=== PATIENT | female | born 1960 | race Caucasian/White ===

== ENCOUNTER 2021-11-28 10:03 | Day surgery (SDC) | payer OTHER ==
[~2021-11-28] VITALS: Ht 157.5 cm; Wt 54.4 kg
[2021-11-28] MEDS ORDERED: diphenhydrAMINE 50 MG/ML VIAL ONE (10:57)
[2021-11-28] MEDS ORDERED: MIDAZOLAM 5 MG/5 ML VIAL ONE (10:57)
[2021-11-28] MEDS ORDERED: fentaNYL citrate 0.05 MG/ML VIAL ONE (10:57)
[2021-11-28] MEDS ORDERED: LIDOCAINE 2% 100 MG/5 ML UJET TP ONE (10:57)
[2021-11-28] MEDS ORDERED: MIDAZOLAM 2 MG/2 ML VIAL IVP ONE (12:20)
[2021-11-28] MEDS ORDERED: fentaNYL citrate 0.05 MG/ML VIAL IVP ONE (12:20)
== END 2021-11-28 12:45 | disposition home or self-care (01) ==
LOC: MDS 10:03 → MMU 10:03 → MDS 12:45
PROVIDERS: ATTEND Internal Medicine Gastroenterology
DX: R63.4 Abnormal weight loss (principal); K51.519 Left sided colitis with unspecified complications; R10.30 Lower abdominal pain, unspecified; K44.9 Diaphragmatic hernia without obstruction or gangrene; Z20.822 Contact with and (suspected) exposure to COVID-19; Z88.5 Allergy status to narcotic agent; Z88.1 Allergy status to other antibiotic agents; Z88.8 Allergy status to other drugs, medicaments and biological substances; Z98.890 Other specified postprocedural states
CPT/HCPCS: 43239; 45380; 87426; 88305; 88312; 88313; 88342; J2250; J3010; J1200